=== PATIENT | male | born 1995 ===

== ENCOUNTER 2016-11-24 11:05 | Emergency (ER) | payer BC, OTHER ==
[2016-11-24 12:13] VITALS: BP 147/93
--- NOTE | 2016-11-24 15:14 | ED ---
Juan A Jones Billy, scribed for Dominik Smith MD on 11/24/16 at 1239 . 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 He states that his symptoms began recently, worsening in the last several days. Denies any other symptoms such as fevers or chills. Nothing has made his symptoms better or worse. - History of Current Complaint Chief Complaint: EDUrogenitalProblems Time Seen by Provider: 11/24/16 12:35 Stated Complaint: RASH , GROIN PAIN Hx Obtained From: Patient Onset/Duration: Started Days Ago, Still Present Timing: Constant Onset Severity: Moderate Current Severity: Moderate Skin Location: Other: - groin Character: Redness - itching Aggravating Symptom(s): Nothing Alleviating Symptom(s): Nothing Associated Signs & Symptoms: Rash - Allergy/Home Medications Allergies/Adverse Reactions: Allergies Allergy/AdvReac Type Severity Reaction Status Date / Time No Known Allergies Allergy Verified 11/04/15 14:05 PMH/Surg Hx/FS Hx/Imm Hx Endocrine/Hematology History: Denies: Hx Diabetes, Hx Thyroid Disease Cardiovascular History: Denies: Hx Hypertension Respiratory History: Denies: Hx Asthma, Hx Chronic Obstructive Pulmonary Disease (COPD) GI History: Denies: Hx Ulcer EENT History: Reports: Hx Seasonal Allergies - Surgical History Surgery Procedure, Year, and Place: wisdom teeth extraction Infectious Disease History: No Infectious Disease History: Denies: Hx Hepatitis, Hx Human Immunodeficiency Virus (HIV), Traveled Outside the [place] in Last 30 Days - Family History Known Family History: Positive: Other - lung cancer - Social History Alcohol Use: Weekly Substance Use Type: Reports: None Smoking Status (MU): Never Smoked Tobacco Review of Systems Negative: Fever, Chills Positive: Rash All Other Systems Reviewed And Are Negative: Yes Physical Exam - Summary Physical Exam Summary: The patient is well-nourished in no acute distress and in no acute pain. The skin is warm and dry and skin color reflects adequate perfusion. Positive erythematous rash with irregular borders in the groin region; and two on the left eyebrow HEENT: The head is normocephalic and atraumatic. The pupils are equal and reactive. The conjunctivae are clear and without drainage. Nares are patent and without drainage. Mouth reveals moist mucous membranes and the throat is without erythema and exudate. The external ears are intact. The ear canals are patent and without drainage. The tympanic membranes are intact. Neck is supple with full range of motion and non-tender. There are no carotid bruits. There is no neck vein distension. Respiratory: Chest is non-tender. Lungs are clear to auscultation and breath sounds are symmetrical and equal. Cardiovascular: Hear is regular rate and rhythm. There is no murmur or rub auscultated. There is no peripheral edema and pulses are symmetrical and equal. Abdomen: The abdomen is soft and non-tender. There are normal bowel sounds heard in all four quadrants and there is no organomegaly palpated. Musculoskeletal: There is no back pain noted. Extremities are non-tender with full range of motion. There is good capillary refill. There is no peripheral edema or calf tenderness elicited. Neurological: Patient is alert and oriented to person, place and time. The patient has symmetrical motor strength in all four extremities. Cranial nerves are grossly intact. Deep tendon reflexes are symmetrical and equal in all four extremities. Psychiatric: The patient has an appropriate affect and does not exhibit any anxiety or depression. Triage Information Reviewed: Yes Vital Signs On Initial Exam: Initial Vitals Temp Pulse Resp BP Pulse Ox 97.7 F 61 16 136/85 97 11/24/16 11:09 11/24/16 11:09 11/24/16 11:09 11/24/16 11:09 11/24/16 11:09 Vital Signs Reviewed: Yes Diagnostics - Vital Signs Vital Signs Temp Pulse Resp BP Pulse Ox 11/24/16 12:11 97.9 F 58 12 147/93 99 11/24/16 11:09 97.7 F 61 16 136/85 97 - Laboratory Lab Statement: Any lab studies that have been ordered have been reviewed, and results considered in the medical decision making process. Course/Dx - Course Assessment/Plan: This patient is a 21 y/o male with tinea pruris who has been treating his symptoms with OTC medications, with no improvement. He comes here for treatment for the itching. He was given antifungal medication and cream and was instructed to follow up with dermatology. He was recommended to return to the ED with any worsening symptoms. I discussed all the findings and test results with the patient. Patient was instructed to return to the emergency room immediately if any of the symptoms return or worsens. Plan of care was discussed with the patient and understands and agrees. All questions were answered at patient satisfaction. There were no further complaints or concerns. Lung exam before discharge: CTA B/L. Good air exchange. No wheezing or crackles heard. CVS: S1 and S2 present. No murmurs appreciated. Patient is alert and oriented x 3. Patient is hemodynamically stable. 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 SONG, DERMATOLOGY. The documentation as recorded by the Juan A grijalva Billy accurately reflects the service I personally performed and the decisions made by me, Dominik Smith MD.
== END 2016-11-24 12:55 | disposition home or self-care (01) ==
LOC: ED 11:05
DX: B35.6 Tinea cruris (principal); R21 Rash and other nonspecific skin eruption; R10.30 Lower abdominal pain, unspecified
CPT/HCPCS: 99282